=== PATIENT | male | born 1970 | race Caucasian/White ===

== ENCOUNTER → 2019-10-19 | Outpatient (CLI) | payer BC ==
--- NOTE | 2019-10-19 18:11 | CONS ---
CONSULTATION DATE OF SERVICE: 10/19/2019 This patient is a 48-year-old gentleman who has been evaluated in Sleep Center for possible obstructive sleep apnea-hypopnea syndrome. HISTORY OF PRESENT ILLNESS/SLEEP-WAKE EVALUATION: Patient's usual sleep schedule on working days is from 10 or 11 p.m. until 5 or 6 a.m. and on weekends from 11 p.m. until around 9 a.m. No problems with falling asleep usually. No TV in bedroom. He sleeps usually on the side position with his , and according to her, he has severe snoring. He grinds his teeth, wakes up from sleep multiple times, sometimes moving his arms during sleep, and he may wake up in the morning with his arms spread out. No history of hypnagogic hallucinations, sleep paralysis or cataplexy. [place] Sleepiness Scale is 1. He usually does not take any naps during the day. PAST MEDICAL HISTORY: Positive for anxiety. PAST SURGICAL HISTORY: Left wrist fracture in 2015. MEDICATIONS: Alprazolam. SOCIAL HISTORY: Positive for smoking about one pack a day for around 25 years. At present he is using E cigarettes. Alcohol consumption around 5 times per week of beer or hard liquor. FAMILY HISTORY: Basically negative. REVIEW OF SYSTEMS: Multiple awakenings from sleep. PHYSICAL EXAMINATION: GENERAL: A pleasant gentleman without distress. VITAL SIGNS: BP 146/94, HR 80, RR 16, height 6 feet 1-1/2 inches, weight 236 pounds. Body mass index 30.7, temperature 97.8, oxygen saturation at room air 96%. HEENT: PERRLA, EOMI. Evaluation of oropharynx showed tongue protrudes midline. Low position of soft palate. Mallampati III. Slight restriction of nasal breathing. NECK: Supple. No JVD. Thyroid is not palpable. Wide neck measuring 17-1/2 inches in circumference. LUNGS: Clear to percussion and to auscultation. Good air exchange. No wheezing or rhonchi. HEART: S1, S2 regular. No murmurs, gallops or rubs. ABDOMEN: Soft and nontender. Bowel sounds are present. No organomegaly. EXTREMITIES: No clubbing or cyanosis. SCIENTIFIC ILLUSTRATOR: Awake, alert, and oriented X3. Cranial nerves 2 to 7 intact. There is no fasciculation or atrophy. noted. No focal deficits observed. IMPRESSION: 1. Loud snoring, multiple awakenings from sleep, low position of soft palate, Mallampati III, wide neck at 17-1/2 inches in circumference; possible obstructive sleep apnea-hypopnea syndrome. 2. Mild obesity; body mass index 30.7. 3. Anxiety. 4. Status post left wrist fracture in 2014. 5. Asymmetry of the nose with slight restriction of nasal breathing; possibly nasal septal deviation. PLAN: 1. Home sleep apnea test for evaluation of patient's breathing during sleep. 2. CPAP/BiPAP titration if sleep study confirms obstructive sleep apnea-hypopnea syndrome. 3. Preferable position during sleep on the side. 4. No driving if patient feels any sleepiness. 5. I will see patient for follow up visit to explain results of testing and following plan. Thank you very much for referring this patient for consultation. Sincerely, Syed Park MD, PhD, FAASM Diplomat of [employer] [employer] [employer] Oxyacetylene Burner of [facility] [place] MMODL / ROSN: [id number] /
== END | disposition home or self-care (01) ==
LOC: SLEEP 13:53
PROVIDERS: ATTEND Internal Medicine
DX: G47.8 Other sleep disorders (principal); R06.83 Snoring; E66.9 Obesity, unspecified; F41.9 Anxiety disorder, unspecified; Q30.8 Other congenital malformations of nose; F17.210 Nicotine dependence, cigarettes, uncomplicated; Z87.81 Personal history of (healed) traumatic fracture; Z79.899 Other long term (current) drug therapy; Z68.30 Body mass index [BMI] 30.0-30.9, adult
CPT/HCPCS: 99211

== ENCOUNTER → 2020-05-30 | Outpatient (CLI) | payer BC ==
--- NOTE | 2020-05-31 05:49 | SFUN ---
SLEEP CENTER FOLLOW UP NOTE DATE OF SERVICE: 05/30/2020 A 49-year-old gentleman has been followed in Sleep Center for treatment of obstructive sleep apnea-hypopnea syndrome. This is his first visit after he started to use his CPAP equipment. He is still trying to get use to the mask. He is using full-face mask. He thinks that he feels better during the day after he started to use CPAP equipment. [place] Sleepiness Scale today is 5. I checked the CPAP unit. It is an automatic regimen, range of the pressure 5 to 12 cm of water. The average pressure is 11.8 cm of water. For the last 6 months, usage is 162/180 nights and 126/180 more than 4 hours. Average usage around 6 hours. Leak is 46 L/minute. Apnea-hypopnea index for the last 6 months 7.6 for the last month 7.1. MEDICATIONS: Alprazolam. PHYSICAL EXAMINATION: GENERAL: Patient in no distress. VITAL SIGNS: BP 133/86, HR around 100, RR 15, weight 238.0, temperature 97.5, oxygen saturation at room air 98%. HEENT: PERRLA, EOMI. Oropharynx low position of soft palate. Mallampati 3. NECK: Supple, no JVD. Thyroid is not palpable. LUNGS: Clear to percussion and to auscultation. Good air exchange. No wheezing or rhonchi. HEART: S1, S2 regular. No murmurs, gallops, or rubs. ABDOMEN: Slightly obese. EXTREMITIES: No clubbing or cyanosis. AGRICULTURAL EXTENSION SPECIALIST: Awake, alert, and oriented X3. Cranial nerves 2 to 7 intact. There is no fasciculation or atrophy. noted. No focal deficits observed. IMPRESSION: 1. Obstructive sleep apnea-hypopnea syndrome. Patient demonstrated borderline good compliance with treatment, benefitting from treatment. Apnea-hypopnea index still slightly increased in mild range. 2. Mild obesity. 3. History of anxiety. 4. Status post left wrist fracture in 2014. 5. Some restriction of nasal breathing. PLAN: 1. Patient will continue to use PAP equipment every night for the whole night. I will increase range of auto PAP to the maximum pressure of 16 cm of water. 2. Sleep hygiene with regular time in bed for at least 7-1/2 to 8 hours. 3. Precautions related to driving. No driving if feeling sleepiness. 4. I will maintain all necessary prescription for PAP supplies including mask, tube, filters. 5. Watching weight. 6. No driving if feeling sleepiness. 7. Follow-up visit in 6 months or earlier if patient has any problems. Thank you very much for allowing me to participate in management of your patient. Sincerely, Syed Park MD, PhD, FAASM Diplomat of [employer] [employer] [employer] Retail Project Merchandiser of [facility] [place] MMODL / IJN: [id number] /
== END | disposition home or self-care (01) ==
LOC: SLEEP 13:12
PROVIDERS: ATTEND Internal Medicine
DX: G47.33 Obstructive sleep apnea (adult) (pediatric) (principal); Z99.89 Dependence on other enabling machines and devices; E66.9 Obesity, unspecified; Z86.59 Personal history of other mental and behavioral disorders; Z87.81 Personal history of (healed) traumatic fracture; R89.8 Other abnormal findings in specimens from other organs, systems and tissues

== ENCOUNTER 2020-06-16 18:00 | Emergency (ER) | payer BC ==
[2020-06-16 18:08] VITALS: BP 128/84; RESP 18; TEMP 97.8
[2020-06-16] MEDS ORDERED: LIDOCAINE 1% INJ 10MG/ML (20 ML MDV) SQ ONE (18:11)
--- NOTE | 2020-06-16 19:00 | ED ---
Wound/Laceration HPI - General Chief Complaint: Wound/Laceration Stated Complaint: finger lac Time Seen by Provider: 06/16/20 18:09 Source: patient Mode of arrival: ambulatory Limitations: no limitations - History of Present Illness Initial Comments: Patient 49-year-old male presenting to emergency prescribed a chief complaint laceration. Patient reports he was attempting to put strain on his go when it snapped the lacerated his left thumb. Patient reports there is some pain to palpation but denies any numbness or tingling. States he is fully able to move the thumb. He states his tetanus is up-to-date. This occurred about one hour prior to arrival. No alleviating or aggravating factors. - Related Data Home Medications Medication Instructions Recorded Confirmed ALPRAZolam 0.5 mg PO DAILY PRN 07/27/15 08/02/15 Zolpidem [Ambien] 10 mg PO HS PRN 07/31/15 08/02/15 Previous Rx's Medication Instructions Recorded Cephalexin [Keflex] 500 mg PO Q8HR #15 cap 08/02/15 Docusate [Colace] 100 mg PO BID #60 capsule 08/02/15 HYDROcodone/APAP 10-325MG [[place] 1 - 2 each PO Q6H PRN #90 tab 08/03/15 10] diazePAM [Valium] 5 mg PO BID PRN #15 tab 08/03/15 hydrOXYzine pamoate [Vistaril] 25 mg PO QID PRN #40 cap 08/04/15 Allergies Allergy/AdvReac Type Severity Reaction Status Date / Time No Known Allergies Allergy Verified 06/16/20 18:08 Review of Systems ROS Statement: Those systems with pertinent positive or pertinent negative responses have been documented in the HPI. ROS Other: All systems not noted in ROS Statement are negative. Past Medical History Past Medical History: Asthma Additional Past Medical History / Comment(s): insomnia, FX LEFT WRIST 07/27/15 History of Any Multi-Drug Resistant Organisms: None Reported Past Surgical History: No Surgical Hx Reported Additional Past Surgical History / Comment(s): REMOVAL OF STRAIGHT PIN FROM LUNGS TODDLER Past Anesthesia/Blood Transfusion Reactions: No Reported Reaction Additional Past Anesthesia/Blood Transfusion Reaction / Comment(s): Pt has never received blood. Past Psychological History: Anxiety Smoking Status: Vaper Past Alcohol Use History: Daily Past Drug Use History: None Reported - Past Family History Mother Family Medical History: No Reported History Additional Family Medical History / Comment(s): Mother is healthy and is 70 yrs old. Father History Unknown: Yes General Exam Limitations: no limitations General appearance: alert, in no apparent distress, obese Head exam: Present: atraumatic, normocephalic, normal inspection Eye exam: Present: normal appearance, PERRL, EOMI Pupils: Present: normal accommodation ENT exam: Present: normal exam, normal oropharynx, mucous membranes moist, TM's normal bilaterally, normal external ear exam Neck exam: Present: normal inspection, full ROM. Absent: tenderness Respiratory exam: Present: normal lung sounds bilaterally. Absent: respiratory distress, wheezes Cardiovascular Exam: Present: regular rate, normal rhythm, normal heart sounds Extremities exam: Present: full ROM, tenderness (Mild tenderness at laceration site), normal capillary refill, other (+2 ulnar and radial possible laterally. Sensation intact to the left thumb.). Absent: normal inspection (Laceration measuring approximately 2 cm on the left thumb. Irregular edges.), pedal edema, joint swelling, calf tenderness Back exam: Present: normal inspection, full ROM. Absent: tenderness, CVA tenderness (R), CVA tenderness (L) Neurological exam: Present: alert, oriented X3 Psychiatric exam: Present: normal affect, normal mood Skin exam: Present: warm, dry, intact, normal color Course Vital Signs 06/16/20 18:05 Temperature 97.8 F Pulse Rate 120 H Respiratory 18 Rate Blood Pressure 128/84 O2 Sat by Pulse 100 Oximetry Procedures - Laceration Laceration #1 Consent Obtained: verbal consent Indication: laceration Site: hand Size (cm): 2 Description: flap, irregular, clean Depth: simple, single layer Sedation/Analgesia: none Anesthetic Used: lidocaine 1% Anesthesia Technique: local infiltration Amount (mls): 3 Pre-repair: irrigated extensively, deep structures intact Type of Sutures: nylon Size of Sutures: 4-0 Number of Sutures: 3 Technique: simple, interrupted Patient Tolerated Procedure: well, no complications Medical Decision Making - Medical Decision Making Patient is a 49-year-old male presenting to the emergency department with chief complaint laceration. His tetanus is up-to-date. Physical exam, patient is neurovascularly intact. He does have an irregular laceration measuring approximately 2 cm. Laceration site was thoroughly irrigated. Laceration site was repaired with 3 sutures. Patient tolerated procedure well. Return parameters discussed with patient was understanding and agreeable. Case discussed with physician. Disposition Clinical Impression: Laceration Disposition: HOME SELF-CARE Condition: Stable Instructions (If sedation given, give patient instructions): Laceration (DC), Care For Your Stitches (DC) Additional Instructions: Please return to the emergency room in 8-10 days to have sutures removed. Please watch for any signs of infection which may include increased pain, swelling, redness, fever or chills. Please return to emergency room for any signs of infection do occur. Please use clean soap and water over the area to prevent scabbing over your stitches. Please leave wound covered for the first 24-48 hours and then leave wound open to air. Please return to the emergency room for any other concerns. Is patient prescribed a controlled substance at d/c from ED?: No Referrals: Tj Renee DO [Primary Care Provider] - 1-2 days Time of Disposition: 19:00
[2020-06-16 19:15] VITALS: PULSE 102
== END 2020-06-16 19:15 | disposition home or self-care (01) ==
LOC: EC 18:00
DX: S61.012A Laceration without foreign body of left thumb without damage to nail, initial encounter (principal); G47.00 Insomnia, unspecified; F41.9 Anxiety disorder, unspecified; F17.290 Nicotine dependence, other tobacco product, uncomplicated; W49.02XA String or thread causing external constriction, initial encounter
CPT/HCPCS: 99282; 12001; J2001

== ENCOUNTER → 2020-12-12 | Outpatient (CLI) | payer BC ==
--- NOTE | 2020-12-12 23:17 | SFUN ---
SLEEP CENTER FOLLOW UP NOTE DATE OF SERVICE: 12/12/2020 This 49-year-old gentleman has been followed in Sleep Center for treatment of obstructive sleep apnea-hypopnea syndrome. Patient continues to use his CPAP equipment every night. During his previous visit, apnea-hypopnea index was increased to 7.1 for the last month, and I increased the range of pressure. Average pressure at that time was 11.8 and the maximum pressure was 12, so I increased it to 20 cm of water maximal. Patient continues to use the machine without problems, although he did not change his mask for while. I checked his CPAP unit. Range of the pressure is 5 to 20, but average pressure is 10.5, which is slightly less than during his previous visit. Usage is 26/30 nights for more than 4 hours, which is 5.9 hours per night, which is good compliance. Leak is high at 48 L/minute. Apnea-hypopnea index is 5.0, which is decreasing from the previous visit on 2 times per hour to basically normal range. MEDICATIONS: Alprazolam. PHYSICAL EXAMINATION: GENERAL: A pleasant patient in no distress. VITAL SIGNS: BP 134/86, HR 84, RR 12, height 6 feet 1-1/2 inches, weight 234.2, temperature 98.4, oxygen saturation on room air 96%. BMI 30.4. HEENT: PERRLA, EOMI. Evaluation of oropharynx showed tongue protrudes midline. Low position of soft palate. Mallampati III. NECK: Supple. No JVD. Thyroid is not palpable. LUNGS: Clear to percussion and to auscultation. Good air exchange. No wheezing or rhonchi. HEART: S1, S2 regular. No murmurs, gallops or rubs. ABDOMEN: Slightly obese. EXTREMITIES: No clubbing or cyanosis. QUANTITATIVE EQUITY HEAD: Awake, alert, and oriented X3. Cranial nerves 2 to 7 intact. There is no fasciculation or atrophy. noted. No focal deficits observed. IMPRESSION: 1. Obstructive sleep apnea-hypopnea syndrome. Patient demonstrated great compliance with treatment, benefitting from treatment. Normalization of apnea-hypopnea index to the borderline level compared to his previous visit. 2. Mild obesity. Patient lost 4 pounds since previous visit. 3. History of anxiety. 4. Status post left wrist fracture in 2014. 5. Some restriction of nasal breathing. PLAN: 1. Patient should replace his mask for CPAP unit. 2. Patient will continue to use PAP equipment every night for the whole night. 3. Sleep hygiene with regular time in bed for at least 7-1/2 to 8 hours. 4. Precautions related to driving. No driving if feeling sleepiness. 5. I will maintain all necessary prescription for PAP supplies including mask, tube, filters. 6. Watching weight. 7. Follow-up visit in 6 months or earlier if patient has any problems. Thank you very much for allowing me to participate in the management of your patient. Sincerely, Syed Park MD, PhD, FAASM Diplomat of [place] [employer] [place] [employer] Merchandising Internship of [facility] [place] MMODL / IJN: [id number] /
== END ==
LOC: SLEEP 16:26
PROVIDERS: ATTEND Internal Medicine
DX: G47.33 Obstructive sleep apnea (adult) (pediatric) (principal); E66.9 Obesity, unspecified; F41.9 Anxiety disorder, unspecified; S62.102D Fracture of unspecified carpal bone, left wrist, subsequent encounter for fracture with routine healing; R06.89 Other abnormalities of breathing; Z68.30 Body mass index [BMI] 30.0-30.9, adult

== ENCOUNTER 2021-01-23 22:14 | Emergency (ER) | payer BC ==
[2021-01-23 22:20] VITALS: BP 146/78; PULSE 88; RESP 18; TEMP 97.9
[2021-01-23] MEDS ORDERED: TOPICAL SKIN ADHESIVE 1 EACH AMP TOPICAL ONE (22:31)
--- NOTE | 2021-01-23 22:41 | ED ---
Wound/Laceration HPI - General Chief Complaint: Wound/Laceration Stated Complaint: Lft hand lac Time Seen by Provider: 01/23/21 22:25 Source: patient, RN notes reviewed Mode of arrival: ambulatory Limitations: no limitations - History of Present Illness Initial Comments: Patient is a 50-year-old male that presents to the emergency problem with a left palm laceration that he acquired wall pitting an avocado. He notes that there is a small piece apparent left and he went to stand [employer] when he got himself in the hand. He noted that he did wash it out. At home and that it stopped bleeding on its own. He notes that he does have full range of motion feeling sensation in all of his fingers. He did note that he is up-to-date on his tetanus vaccination. He denied any other complaints or issues. He denied any pain weakness numbness tingling decreased range of motion in any of his fingers on his left hand. - Related Data Home Medications Medication Instructions Recorded Confirmed ALPRAZolam 0.5 mg PO DAILY PRN 07/27/15 08/02/15 Zolpidem [Ambien] 10 mg PO HS PRN 07/31/15 08/02/15 Previous Rx's Medication Instructions Recorded Cephalexin [Keflex] 500 mg PO Q8HR #15 cap 08/02/15 Docusate [Colace] 100 mg PO BID #60 capsule 08/02/15 HYDROcodone/APAP 10-325MG [[place] 1 - 2 each PO Q6H PRN #90 tab 08/03/15 10] diazePAM [Valium] 5 mg PO BID PRN #15 tab 08/03/15 hydrOXYzine pamoate [Vistaril] 25 mg PO QID PRN #40 cap 08/04/15 Allergies Allergy/AdvReac Type Severity Reaction Status Date / Time No Known Allergies Allergy Verified 06/16/20 18:08 Review of Systems ROS Statement: Those systems with pertinent positive or pertinent negative responses have been documented in the HPI. ROS Other: All systems not noted in ROS Statement are negative. Past Medical History Past Medical History: Asthma Additional Past Medical History / Comment(s): insomnia, FX LEFT WRIST 07/27/15 History of Any Multi-Drug Resistant Organisms: None Reported Past Surgical History: No Surgical Hx Reported Additional Past Surgical History / Comment(s): REMOVAL OF STRAIGHT PIN FROM LUNGS TODDLER Past Anesthesia/Blood Transfusion Reactions: No Reported Reaction Additional Past Anesthesia/Blood Transfusion Reaction / Comment(s): Pt has never received blood. Past Psychological History: Anxiety Smoking Status: Vaper Past Alcohol Use History: Daily Past Drug Use History: None Reported - Past Family History Mother Family Medical History: No Reported History Additional Family Medical History / Comment(s): Mother is healthy and is 70 yrs old. Father History Unknown: Yes General Exam Limitations: no limitations General appearance: alert, in no apparent distress Head exam: Present: atraumatic, normocephalic, normal inspection Eye exam: Present: normal appearance, PERRL, EOMI. Absent: scleral icterus, conjunctival injection, periorbital swelling Neck exam: Present: normal inspection Respiratory exam: Present: normal lung sounds bilaterally. Absent: respiratory distress, wheezes, rales, rhonchi, stridor Cardiovascular Exam: Present: regular rate, normal rhythm, normal heart sounds. Absent: systolic murmur, diastolic murmur, rubs, gallop, clicks Extremities exam: Present: normal inspection, full ROM, normal capillary refill. Absent: tenderness, pedal edema, joint swelling, calf tenderness Left Hand Wrist exam: Present: laceration (Small 0.5 cm laceration located in the medial aspect of the palm just proximal the index and middle finger) Neurological exam: Present: alert, oriented X3, CN II-XII intact Psychiatric exam: Present: normal affect, normal mood Skin exam: Present: warm, dry, intact, normal color. Absent: rash Course Vital Signs 01/23/21 22:17 Temperature 97.9 F Pulse Rate 88 Respiratory 18 Rate Blood Pressure 146/78 O2 Sat by Pulse 98 Oximetry Procedures - Laceration Laceration #1 Consent Obtained: verbal consent Indication: laceration Site: hand (Left palm) Size (cm): 1 Description: linear Type of Sutures: other (exofin) Technique: other (glue) Patient Tolerated Procedure: well, no complications Medical Decision Making - Medical Decision Making 50-year-old male with a small laceration to the left palm. exofin ordered to close the laceration. Patient is up-to-date on tetanus vaccination. Case discussed with Dr. Romeo, patient can discharge home. Disposition Clinical Impression: Laceration Disposition: HOME SELF-CARE Condition: Stable Instructions (If sedation given, give patient instructions): Laceration (ED), Skin Adhesive Care (ED) Additional Instructions: Please return to the Emergency Department if symptoms worsen or any other concerns. Be careful when pitting avocados. Is patient prescribed a controlled substance at d/c from ED?: No Referrals: Tj Renee DO [Primary Care Provider] - 1-2 days Time of Disposition: 22:41
== END 2021-01-23 22:49 | disposition home or self-care (01) ==
LOC: EC 22:14
DX: S61.412A Laceration without foreign body of left hand, initial encounter (principal); J45.909 Unspecified asthma, uncomplicated; F41.9 Anxiety disorder, unspecified; X58.XXXA Exposure to other specified factors, initial encounter
CPT/HCPCS: 12001; 99282

== ENCOUNTER → 2021-07-10 | Outpatient (CLI) | payer BC ==
--- NOTE | 2021-07-10 19:01 | SFUN ---
SLEEP CENTER FOLLOW UP NOTE DATE OF SERVICE: 07/10/2021 This 50-year-old gentleman has been followed in Sleep Center for treatment of obstructive sleep apnea-hypopnea syndrome. The patient continues to use his CPAP equipment every night. He is experiencing some leak from the [employer]plus full-face mask. [place] Sleepiness Scale today is 2, which is totally normal. I checked his CPAP unit. The range of the pressure is 5 to 20, average pressure 9.3, usage / nights for more than 4 hours, average 6.6 hours per night. Leak is quite high at 52 L/minute. Apnea-hypopnea index is 2.8. We showed the patient how to adjust the mask on the face. His position of the mask was too tight, and this was probably the reason for the significant leak. MEDICATIONS: Xanax as needed. PHYSICAL EXAMINATION: GENERAL: Pleasant patient in no distress. VITAL SIGNS: BP 127/85, HR 98, RR 15, height 6 feet 1-1/2 inches, weight 233, body mass index 30, temperature 98.5, oxygen saturation room air 96%. HEENT: PERRLA, EOMI, evaluation of oropharynx showed tongue protrudes midline. Low position of soft palate; Mallampati III. NECK: Supple, no JVD. Thyroid is not palpable. LUNGS: Clear to percussion and to auscultation. Good air exchange. No wheezing or rhonchi. HEART: S1, S2 regular. No murmurs, gallops, or rubs. ABDOMEN: Soft and nontender. Bowel sounds are present. No organomegaly appreciated. EXTREMITIES: No clubbing or cyanosis. CELLULAR EQUIPMENT REPAIRER: Awake, alert, and oriented X3. Cranial nerves 2 to 7 intact. There is no fasciculation or atrophy. noted. No focal deficits observed. IMPRESSION: 1. Obstructive sleep apnea-hypopnea syndrome. Patient demonstrated good compliance with treatment, benefitting from treatment. Normal respiration on CPAP. 2. Mild obesity. 3. History of anxiety. 4. Status post left wrist fracture in 2014. 5. Some restriction of nasal breathing. PLAN: 1. Replace air filter immediately. It is in very bad condition. 2. Patient will continue to use PAP equipment every night for the whole night. 3. Sleep hygiene with regular time in bed for at least 7-1/2 to 8 hours. 4. Precautions related to driving. No driving if feeling sleepiness. 5. I will maintain all necessary prescription for PAP supplies including mask, tube, filters. 6. Watching weight. 7. Follow-up visit in 6 months or earlier if patient has any problems. Thank you very much for allowing me to participate in the management of your patient. Sincerely, Syed Park MD, PhD, FAASM Diplomat of [place] [employer] Sleep Medicine Board of [place] [employer] Paper Final Inspector of [facility] [place] MMODL / ROSN: [id number] /
== END ==
LOC: SLEEP 16:18
PROVIDERS: ATTEND Internal Medicine
DX: G47.33 Obstructive sleep apnea (adult) (pediatric) (principal); E66.9 Obesity, unspecified; F41.9 Anxiety disorder, unspecified; R06.02 Shortness of breath; F17.200 Nicotine dependence, unspecified, uncomplicated; Z87.81 Personal history of (healed) traumatic fracture; Z68.30 Body mass index [BMI] 30.0-30.9, adult; Z79.899 Other long term (current) drug therapy

== ENCOUNTER 2023-12-28 11:25 | Day surgery (SDC) | payer BC ==
[2023-12-24 13:29] VITALS: BMI 30.8
[2023-12-28] MEDS: LACTATED RINGERS 1,000 ML IV SCH (11:49)
[2023-12-28 11:51] VITALS: TEMP 97.4
[2023-12-28] MEDS ORDERED: LIDOCAINE 1% INJ 10MG/ML (20 ML MDV) ONE (11:54)
[2023-12-28] MEDS ORDERED: PROPOFOL 10 MG/ML 20 ML VIAL IV ONE (11:54)
--- NOTE | 2023-12-28 12:06 | P.GSHP ---
History of Present Illness H&P Date: 12/28/23 Chief Complaint: History of polyps 53-year-old male here for colonoscopy. Last colonoscopy 3 years ago. Patient with history of polyps at the time. No bowel complaints currently. No family history of colon cancer. Past Medical History Past Medical History: Asthma Additional Past Medical History / Comment(s): insomnia, FX LEFT WRIST 07/27/15 History of Any Multi-Drug Resistant Organisms: None Reported Past Surgical History: No Surgical Hx Reported Additional Past Surgical History / Comment(s): REMOVAL OF STRAIGHT PIN FROM LUNG S TODDLER, colonoscopy Past Anesthesia/Blood Transfusion Reactions: No Reported Reaction Additional Past Anesthesia/Blood Transfusion Reaction / Comment(s): Pt has never received blood. Past Psychological History: No Psychological Hx Reported Additional Psychological History / Comment(s): Pt resides with his spouse. He is independent. He uses no assistive device. He has a shoulder sling. He drives. Smoking Status: Vaper Past Alcohol Use History: Daily Additional Past Alcohol Use History / Comment(s): Started smoking at age 15. Has quit off ond on for years. Patient would not commit to drinking more than 14 drinks per week. Past Drug Use History: None Reported - Past Family History Mother Family Medical History: No Reported History Additional Family Medical History / Comment(s): Mother is healthy and is 70 yrs old. Father History Unknown: Yes Medications and Allergies Home Medications Medication Instructions Recorded Confirmed Type ALPRAZolam 0.5 mg PO DAILY PRN 07/27/15 12/24/23 History Zolpidem [Ambien] 10 mg PO HS PRN 07/31/15 12/24/23 History Allergies Allergy/AdvReac Type Severity Reaction Status Date / Time No Known Allergies Allergy Verified 12/28/23 11:44 Surgical - Exam Vital Signs Temp Pulse Resp BP Pulse Ox 97.4 F L 101 H 16 147/101 100 12/28/23 11:47 12/28/23 11:47 12/28/23 11:47 12/28/23 11:47 12/28/23 11:47 Physical exam: General: Well-developed, well-nourished HEENT: Normocephalic, sclerae nonicteric Abdomen: Nontender, nondistended Extremities: No edema Neuro: Alert and oriented Assessment and Plan (1) History of colon polyps Narrative/Plan: Will proceed with colonoscopy at this time. Current Visit: Yes Status: Acute Code(s): Z86.010 - PERSONAL HISTORY OF COLONIC POLYPS SNOMED Code(s): 404359022
--- NOTE | 2023-12-28 12:22 | P.PCN ---
Date of Procedure: 12/28/23 Procedure(s) Performed: PREOPERATIVE DIAGNOSIS: Screening with history of polyps POSTOPERATIVE DIAGNOSIS: Normal exam PROCEDURE: Colonoscopy ANESTHESIA: MAC SURGEON: Suresh Martel M.D. SPECIMENS: None ENDOSCOPIC PROCEDURE: The patient was placed on the endoscopy table in the left decubitus position. The Olympus colonoscope was inserted into the anus and passed under direct visualization to the base of the cecum. The appendiceal orifice was visualized. From that point the scope was slowly withdrawn inspecting all surfaces carefully. There were no neoplastic inflammatory or polypoid lesions throughout the cecum, ascending, transverse, descending, sigmoid and rectum. There was no visible diverticulosis noted. Digital rectal examination was normal. The patient was taken to the recovery room in stable condition per anesthesia guidelines. RECOMMENDATIONS: Resume diet. Repeat colonoscopy 5 years.
[2023-12-28 13:17] VITALS: BP 116/76; PULSE 72; RESP 16
== END 2023-12-28 12:55 | disposition home or self-care (01) ==
LOC: ORWHC2ENDO 11:25
PROVIDERS: ATTEND Surgery
DX: Z12.11 Encounter for screening for malignant neoplasm of colon (principal); J45.909 Unspecified asthma, uncomplicated; F10.90 Alcohol use, unspecified, uncomplicated; Z98.890 Other specified postprocedural states; Z87.891 Personal history of nicotine dependence; Z86.010 Personal history of colon polyps; Z79.899 Other long term (current) drug therapy
CPT/HCPCS: 45378; J2001; J2704